=== PATIENT | male | born 1985 | race Caucasian/White ===

== ENCOUNTER 2024-09-25 19:02 | Emergency (ER) | payer SELFPAY ==
[~2024-09-25] VITALS: Ht 190.5 cm; Wt 119.7 kg
[2024-09-25] MEDS ORDERED: predniSONE 20 MG TABLET ONE (21:09)
[2024-09-25] MEDS: predniSONE 20 MG TABLET PO ONE (21:10)
[2024-09-25] MEDS: ALBUTEROL FS 2.5 MG/3 ML VIAL.NEB CONTNEB ONE (21:21)
[2024-09-25] MEDS: IPRATROPIUM NEB FS 0.5 MG/2.5 ML AMPUL.NEB NEB ONE (21:21)
[2024-09-25] MEDS ORDERED: ALBUTEROL FS 2.5 MG/3 ML VIAL.NEB ONE (21:24)
[2024-09-25] MEDS ORDERED: IPRATROPIUM NEB FS 0.5 MG/2.5 ML AMPUL.NEB ONE (21:24)
[2024-09-25 21:25] VITALS: O2SAT 94
[2024-09-25] MEDS ORDERED: PRED20TA PO (21:26)
[2024-09-25] MEDS ORDERED: ALBU8.5H8 INH (21:26)
[2024-09-25 21:35] VITALS: O2SAT 100
[2024-09-25 21:40] VITALS: O2SAT 98
[2024-09-25 21:50] VITALS: O2SAT 100
[2024-09-25 22:35] VITALS: BP 122/70; TEMP 97.7; O2SAT 100
== END 2024-09-25 22:35 | disposition home or self-care (01) ==
LOC: ER 19:16
DX: J30.89 Other allergic rhinitis (principal)
CPT/HCPCS: 99285; 71045; 94640 ×2; J7512